=== PATIENT | female | born 1990 | race Caucasian/White ===

== ENCOUNTER 2025-03-26 13:44 | Emergency (ER) | payer OTHER ==
[2025-03-26 14:18] VITALS: TEMP 97.9; BMI 28.9
[2025-03-26 14:42] LABS: ABSOLUTE IMMATURE GRANULOCYTES 0.02 x10^3/uL (0.0-0.031); BASOPHILS # 0.03 x10^3/uL (0.01-0.08); EOSINOPHIL % 7.7 % (0.7-5.8); EOSINOPHILS # 0.34 x10^3/uL (0.04-0.36); MCHC 32.3 g/dl (32.2-35.5); MEAN CELL VOLUME 99.6 fl (79.4-94.8); MEAN PLT VOLUME 10.5 fl (9.4-12.3); MONOCYTE # 0.25 x10^3/uL (0.24-0.86); MONOCYTE % 5.7 % (4.7-12.5); RDW 13.2 % (12.1-16.8)
[2025-03-26 14:52] LABS: INR 1.26 (0.83-1.09); PROTHROMBIN TIME (PATIENT) 13.9 SEC (9.7-13.0)
[2025-03-26 14:55] LABS: ACTIVATED PTT 29.2 SECONDS (25.2-36.5)
[2025-03-26 15:18] LABS: CO2 24 mmol/L (21-32); GLUCOSE,RANDOM 90 mg/dL (74-106)
[2025-03-26 15:21] LABS: CREATININE 0.6 mg/dL (0.55-1.3); SGOT/AST 62 U/L (15-37); SGPT/ALT 43 U/L (13-61)
[2025-03-26 15:22] LABS: TOT PROT 5.9 g/dl (6.4-8.2)
[2025-03-26 15:23] LABS: ALK PHOS 357 U/L (45-117)
[2025-03-26 15:54] LABS: HCV DIAGNOSTIC IN-HOUSE W/RFLX NON-REACTIVE (NONREACTIVE)
[2025-03-26] MEDS ORDERED: KETOROLAC TROMETHAMINE 30 MG/1 ML VIAL ONE (15:56)
[2025-03-26] MEDS ORDERED: levETIRAcetam 500 MG TABLET (FP) PO ONE (15:56)
[2025-03-26] MEDS ORDERED: ACETAMINOPHEN INJECTION 100 ML ONE (15:57)
[2025-03-26] MEDS: levETIRAcetam 500 MG TABLET (FP) PO ONE (16:03)
[2025-03-26] MEDS: ACETAMINOPHEN 1000 MG/100 ML BAG IVPB ONE (16:03)
[2025-03-26] MEDS: KETOROLAC TROMETHAMINE 30 MG/1 ML VIAL IVPUSH ONE (16:04)
[2025-03-26] MEDS: KETOROLAC TROMETHAMINE 15 MG/ML VIAL IM ONE (16:04)
[2025-03-26 18:36] VITALS: BP 139/93; PULSE 76; RESP 18
[2025-03-26 23:48] LABS: HIV INTERPRETATION NEGATIVE (NEGATIVE)
== END 2025-03-26 19:12 ==
LOC: JER 13:44
PROC: 3E033NZ Introduction of Analgesics, Hypnotics, Sedatives into Peripheral Vein, Percutaneous Approach (ICD-10-PCS; principal; 2025-03-26)
PROC: 3E0333Z Introduction of Anti-inflammatory into Peripheral Vein, Percutaneous Approach (ICD-10-PCS; 2025-03-26)
DX: G40.909 Epilepsy, unspecified, not intractable, without status epilepticus (principal); R51.9 Headache, unspecified; M79.10 Myalgia, unspecified site; T22.012A Burn of unspecified degree of left forearm, initial encounter; X15.0XXA Contact with hot stove (kitchen), initial encounter; Y93.G3 Activity, cooking and baking; Y92.009 Unspecified place in unspecified non-institutional (private) residence as the place of occurrence of the external cause
CPT/HCPCS: 36415; 70450-TC; 72125-TC; 80053; 80307; 82550; 82962; 84703; 85025; 85610; 85730; 86803; 87389; 93005; 93010; 99285-25